=== PATIENT | male | born 1975 | race Caucasian/White ===

== ENCOUNTER 2019-05-04 16:39 | Inpatient (IN) ==
[2019-05-08] MEDS ORDERED: DULCOLAX PR PRN (16:48)
[2019-05-08] MEDS ORDERED: TUBERSOL ID ONE (16:48)
[2019-05-08] MEDS ORDERED: TYLENOL PO PRN (16:48)
[2019-05-08] MEDS ORDERED: ZOFRAN IM PRN (16:48)
[2019-05-08] MEDS ORDERED: ZOFRAN ODT PO PRN (16:48)
[2019-05-08] MEDS ORDERED: NICOTINE GUM BUCCAL PRN (16:48)
[2019-05-08] MEDS ORDERED: D5W 1,000 ML IV PRN (16:48)
[2019-05-08] MEDS ORDERED: ZOFRAN IV PRN (16:48)
[2019-05-08] MEDS ORDERED: NICODERM PATCH TD PRN (16:48)
[2019-05-08] MEDS ORDERED: PHENOBARBITAL IV PRN (16:48)
[2019-05-08] MEDS ORDERED: IMODIUM PO PRN ×2 (16:48)
[2019-05-08] MEDS ORDERED: SEROQUEL PO PRN (16:48)
[2019-05-08] MEDS ORDERED: MAALOX PLUS LIQUID PO PRN (16:48)
[2019-05-08] MEDS ORDERED: DESYREL PO PRN (16:48)
[2019-05-08] MEDS ORDERED: MOTRIN PO PRN (16:48)
[2019-05-08] MEDS ORDERED: SENOKOT PO PRN (16:48)
[2019-05-08 18:12] LABS: AMYLASE 116 U/L (20-200); LIPASE 60 U/L (13-60)
[2019-05-08] MEDS ORDERED: SALINE LOCK IV FLUID XX ONE (18:17)
[2019-05-08] MEDS ORDERED: ROBAXIN PO PRN (18:17)
[2019-05-08] MEDS ORDERED: BENTYL PO PRN (18:17)
[2019-05-08] MEDS ORDERED: ATARAX PO PRN (18:17)
[2019-05-08] MEDS: LIBRIUM PO SCH (18:34)
[2019-05-08] MEDS: MELATONIN PO SCH (21:38)
[2019-05-08] MEDS: SEROQUEL PO SCH (21:38)
[2019-05-08 21:45] LABS: BILIRUBIN URINE NEGATIVE (NEGATIVE); BLOOD URINE NEGATIVE (NEGATIVE); COLOR YELLOW; GLUCOSE URINE NEGATIVE (NEGATIVE); KETONE URINE NEGATIVE (NEGATIVE); LEUKOCYTES URINE NEGATIVE (NEGATIVE); NITRITE URINE NEGATIVE (NEGATIVE); PROTEIN URINE 30 mg/dL (NEGATIVE); SP GRAVITY URINE 1.008; TURBIDITY URINE CLEAR (CLEAR); URINE SOURCE VOIDED; UROBILINOGEN URINE NORMAL (NORMAL)
[2019-05-08 21:47] LABS: UR EPITHELIAL CELLS <10 /HPF (<10); URINE BACTERIA NEGATIVE /HPF; URINE RBC <10 /HPF (<10); URINE WBC <10 /HPF (<10)
[2019-05-08 21:56] LABS: UR AMPHETAMINES QUAL NONE DETECTED (NONE DETECT)
[2019-05-08 21:57] LABS: UR BARBITUATES QUAL NONE DETECTED (NONE DETECT); UR BENZODIAZEPIN QUAL PRESUMPTIVE POSITIVE (NONE DETECT); UR CANNABINOIDS QUAL NONE DETECTED (NONE DETECT); UR COCAINE QUAL NONE DETECTED (NONE DETECT); UR METHADONE QUAL NONE DETECTED (NONE DETECT); UR METHAMPHETAMINE QUAL NONE DETECTED (NONE DETECT); UR OPIATES QUAL NONE DETECTED (NONE DETECT); UR OXYCODONE QUAL NONE DETECTED (NONE DETECT); UR PCP QUAL NONE DETECTED (NONE DETECT); UR PROPOXYPHENE QUAL NONE DETECTED (NONE DETECT); UR TCA QUAL PRESUMPTIVE POSITIVE (NONE DETECT)
[2019-05-09] MEDS: LIBRIUM PO SCH ×4 (00:31→18:48)
[2019-05-09] MEDS: PROTONIX PO SCH (06:09)
[2019-05-09] MEDS ORDERED: M.V.I.-12 10 ML, FOLIC ACID 1 MG, MAGNESIUM SULFATE 1 GM, THIAMINE 100 MG in NS 1,000 ML IV ONE (09:00)
[2019-05-09] MEDS ORDERED: THERA M PLUS PO SCH (09:00)
[2019-05-09 09:35] LABS: AGAP 9; ALKALINE PHOSPHATASE 87 U/L (32-122); BUN 5 mg/dL (8-22); CALCIUM 9.1 mg/dL (8.8-10.2); CHLORIDE 101 mmol/L (98-107); COSMO 270; CREATININE 0.7 mg/dL (0.7-1.2); ESTIMATED GFR > 60; GLUCOSE 106 mg/dL (70-104); GOT 34 U/L (10-34); GPT 36 U/L (10-44); HEMOGLOBIN 15.6 g/dL (14.0-18.0); MCH 30.1 PG (27-31); MCHC 33.2 g/dL (33-37); MCV 90.7 FL (81-99); MPV 10.2 FL (7.4-10.4); POTASSIUM 4.5 mmol/L (3.5-5.1); RBC 5.18 XMIL (4.7-6.1); RDW 16.1 % (11.5-14.5); SODIUM 136 mmol/L (136-145); TCO2 27 mmol/L (25-35); TOTAL PROTEIN 7.2 g/dL (6.3-8.3); WBC 9.75 X1000 (4.8-10.8)
[2019-05-09] MEDS: FOLIC ACID PO SCH (11:00)
[2019-05-09] MEDS: THERA M PLUS PO SCH (11:00)
[2019-05-09] MEDS: VITAMIN D PO SCH (11:00)
[2019-05-09] MEDS: VITAMIN B-1 PO SCH (11:00)
[2019-05-09] MEDS: VALIUM PO SCH (11:01)
--- NOTE | 2019-05-09 14:57 | PROGRESS NOTE ---
DATE: 05/09/2019 SUBJECTIVE: Patient with no new complaints. Notes that overall he is feeling better. Less tremors, less myalgias. PHYSICAL EXAMINATION: Vital Signs: Reviewed. Temperature 98 degrees, pulse 78, respiratory rate 18, BP 124/77. General: The patient is in no respiratory distress. His tremors appear to have improved. HEENT: Normocephalic. Neck: Supple. Cardiovascular: Regular rate. Chest: Clear. Abdomen: Soft. Extremities: Moves all extremities. ASSESSMENT: 1. Nausea and vomiting. 2. Abdominal pain. 3. Myalgias. 4. Paresthesias. 5. Paroxysmal sweating. 6. Alcohol abuse, withdrawal, and stabilization. PLAN: We will continue patient in the hospital. Continue to wean Librium as tolerated. Continue counseling. Further orders as needed. Discussed with patient medication-assisted therapy (i.e. naltrexone versus Vivitrol) on discharge. cc: Lambert Dumont MD
[2019-05-09] MEDS: XYLOCAINE 2% VISCOUS MT PRN ×2 (15:27→21:36)
[2019-05-09] MEDS: SEROQUEL PO SCH (21:31)
[2019-05-09] MEDS: MELATONIN PO SCH (21:31)
[2019-05-10] MEDS: LIBRIUM PO SCH ×5 (00:19→18:03)
[2019-05-10] MEDS: PROTONIX PO SCH (06:14)
[2019-05-10] MEDS: VITAMIN D PO SCH (10:16)
[2019-05-10] MEDS: VALIUM PO SCH (10:16)
[2019-05-10] MEDS: FOLIC ACID PO SCH (10:17)
[2019-05-10] MEDS: THERA M PLUS PO SCH (10:17)
[2019-05-10] MEDS: VITAMIN B-1 PO SCH (10:17)
[2019-05-10] MEDS: XYLOCAINE 2% VISCOUS MT PRN (13:47)
[2019-05-10] MEDS ORDERED: XYLOCAINE 2% VISCOUS MT PRN (13:48)
--- NOTE | 2019-05-10 20:29 | PROGRESS NOTE ---
DATE: 05/10/2019 SUBJECTIVE: Patient notes that he feels tremendously better today. He is able to ambulate without any difficulty. Notes that his tremors and myalgias have improved. PHYSICAL EXAMINATION: Vital Signs: Reviewed. General: He is awake, alert, oriented. HEENT: Normocephalic. Neck: Supple. Cardiovascular: Regular rate. Chest: Clear. Abdomen: Soft. Extremities: Moves all extremities. Neurologic: No focal changes. ASSESSMENT: 1. Nausea and vomiting. 2. Abdominal pain. 3. Myalgias. 4. Paresthesias. 5. Paroxysmal sweating. 6. Alcohol abuse withdrawal and stabilization. PLAN: We will continue patient in the hospital. Continue to follow. Continue counseling. Further orders as needed. Hopefully can discharge home over the next 1 or 2 days cc: Lambert Dumont MD MTDD
[2019-05-10] MEDS: SEROQUEL PO SCH (21:41)
[2019-05-10] MEDS: MELATONIN PO SCH (21:41)
[2019-05-11] MEDS: PROTONIX PO SCH (06:37)
[2019-05-11 08:14] VITALS: BP 127/80
[2019-05-11] MEDS: THERA M PLUS PO SCH (10:04)
[2019-05-11] MEDS: FOLIC ACID PO SCH (10:04)
[2019-05-11] MEDS: LIBRIUM PO SCH (10:04)
[2019-05-11] MEDS: VITAMIN D PO SCH (10:05)
[2019-05-11] MEDS: VITAMIN B-1 PO SCH (10:05)
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
--- NOTE | 2019-05-12 15:05 | DISCHARGE SUMMARY ---
ADMISSION DATE: 05/08/2019 DISCHARGE DATE: 05/11/2019 DISCHARGE DIAGNOSES: 1. Nausea, vomiting. 2. Abdominal pain. 3. Myalgias. 4. Paresthesias. 5. Paroxysmal sweating. 6. Alcohol abuse, withdrawal, stabilization. BRIEF HOSPITAL COURSE: The patient is a 44-year-old male who presented to the hospital, treated in the usual fashion, placed on high-dose Librium taper, continue to wean. On discharge, he is awake, alert. He is in no distress. He is able to ambulate on his own without assistance. His tremors have resolved. He notes that he is feeling better. DISPOSITION: Greater than 30 minutes was spent in total care. Patient will be discharged to further inpatient treatment for his chronic alcoholism. He is certainly stable. We stopped all of his benzodiazepine. Did discuss with patient the importance of medication-assisted therapy upon discharge from [facility]. cc: Lambert Dumont MD
== END 2019-05-11 09:42 | disposition home or self-care (01) | DRG 392 ==
LOC: P.DIRADM 05-08 13:50 → P.MEDSURG 05-08 15:54
PROVIDERS: ADMIT Family Medicine; ATTEND Family Medicine